=== PATIENT | male | born 1970 | race Two or more races ===

== ENCOUNTER 2019-11-07 18:20 | Emergency (ER) | payer MEDICAID ==
[~2019-11-07] VITALS: Ht 162.6 cm; Wt 86.4 kg
[2019-11-07] MEDS ORDERED: ACETAMINOPHEN 500 MG TABLET PO ONE (20:00)
[2019-11-07 21:03] VITALS: BP 128/84
== END 2019-11-07 21:46 | disposition home or self-care (01) ==
LOC: EMS 18:24
DX: R05 Cough (principal); R06.02 Shortness of breath; R07.89 Other chest pain; Z20.828 Contact with and (suspected) exposure to other viral communicable diseases
CPT/HCPCS: 71045; 93005; 99285; U0003

== ENCOUNTER 2023-04-16 00:21 | Emergency (ER) | payer MEDICAID, OTHER ==
[~2023-04-16] VITALS: Ht 162.6 cm; Wt 86.4 kg
[2023-04-16 00:24] VITALS: TEMP 99.2
[2023-04-16 01:50] LABS: HEMATOCRIT 44.8 % (41-53); HEMOGLOBIN 15.2 g/dL (13.5-17.5); LYMPHOCYTES # (AUTO) 0.6 K/uL (1.0-4.8); LYMPHOCYTES % (AUTO) 19.8 % (22.0-44.0); MEAN CORPUSCULAR HEMOGLOBIN 30.6 pg (26.0-34.0); MEAN CORPUSCULAR VOLUME 90 fL (80-100); MONOCYTES # (AUTO) 0.4 K/uL (0.1-1.0); MONOCYTES % (AUTO) 12.4 % (2.0-9.0); NEUTROPHILS # (AUTO) 2.1 K/uL (1.8-7.7); NEUTROPHILS % (AUTO) 65.8 % (40.0-70.0); PLATELET COUNT (AUTO) 123 K/uL (150-450); RED BLOOD CELL COUNT(AUTO) 4.97 MIL/uL (4.50-5.90); RED CELL DISTRIBUTION WIDTH 14.9 % (11.5-14.5); WHITE BLOOD COUNT (AUTO) 3.1 K/uL (4.5-11.0)
[2023-04-16 02:04] LABS: ANION GAP 7 mmol/L (8-16); CALCIUM, TOTAL 8.7 mg/dL (8.8-10.5); CARBON DIOXIDE 24 mmol/L (22-29); CHLORIDE 99 mmol/L (98-107); CREATININE 0.88 mg/dL (0.60-1.30); GLOMERULAR FILTR. RATE CALC > 60 mL/min (>60); GLUCOSE,RANDOM 101 mg/dL (70-110); POTASSIUM 3.7 mmol/L (3.5-5.1); SODIUM SERUM 130 mmol/L (136-145); UREA NITROGEN, BLOOD 12 mg/dL (7-18)
[2023-04-16 02:09] LABS: B-TYPE NATRIURETIC PEPTIDE 16 pg/mL (0-100)
[2023-04-16 02:12] LABS: ALANINE AMINOTRANSFERASE 65 U/L (12-78); ALBUMIN 3.9 g/dL (3.4-5.0); ALKALINE PHOSPHATASE 85 U/L (46-116); ASPARTATE AMINOTRANSFERASE 51 U/L (15-37); BILIRUBIN,TOTAL 0.2 mg/dL (0.1-1.0); C-REACTIVE PROTEIN QUANT 1.01 mg/dL (0.00-0.30); CREATINE KINASE, TOTAL ONLY 102 U/L (39-308)
[2023-04-16] MEDS ORDERED: ACETAMINOPHEN 500 MG TABLET PO ONE (02:15)
[2023-04-16 02:19] LABS: TROPONIN I-HIGH SENSITIVITY 106 ng/L (<76)
[2023-04-16 02:33] LABS: ERYTHROCYTE SEDIMENTATION RATE 19 MM/HR (0-20)
[2023-04-16 03:22] LABS: COVID AG,FIA SOURCE NASAL SWAB
[2023-04-16 03:50] LABS: SARS-COV2 (COVID) ANTIGEN,FIA Negative (Negative)
[2023-04-16 04:50] LABS: TROPONIN I-HIGH SENSITIVITY 96 ng/L (<76)
[2023-04-16] MEDS ORDERED: SODIUM CHLORIDE 0.9% 100 ML ONE (06:30)
[2023-04-16] MEDS ORDERED: IOHEXOL 350 MG/ML 100 ML VIAL ONE (06:30)
[2023-04-16 08:01] VITALS: BP 126/80; PULSE 60; RESP 16
== END 2023-04-16 08:04 | disposition home or self-care (01) ==
LOC: EMS 00:22
DX: I10 Essential (primary) hypertension (principal); R79.89 Other specified abnormal findings of blood chemistry; Z20.822 Contact with and (suspected) exposure to COVID-19
CPT/HCPCS: 99285; 70450; 71045; 87426; 80053; 82550; 83880; 84484; 85025; 85651; 86140; 36415; 70496; 70498; 93005; Q9967; J7050